=== PATIENT | female | born 1945 | race Caucasian/White ===

== ENCOUNTER 2016-09-19 06:02 | Day surgery (SDC) | payer BC, MEDICARE ==
[~2016-09-19] VITALS: Ht 160 cm; Wt 77.3 kg
[~2016-09-19 06:02] MED LIST: ACET-1651 PO; ACET-2930 PO; ASPI-558 PO; CETI-115 PO; LIDOCAINE 1% (10mg/ml) 2ml SDV INJ ONE; LR 1,000 ML IV SCH; SIMV20TA89 PO; [UNRECOGNIZED DRUG - CODE] PO
[2016-09-19 06:10] VITALS: BP 125/84; PULSE 98; RESP 18; TEMP 97.7; O2SAT 98; Ht 160 cm; Wt 77.3 kg
[2016-09-19] MEDS ORDERED: LIDOCAINE 1% (10mg/ml) 2ml SDV INJ ONE (07:00)
[2016-09-19] MEDS ORDERED: LR 1,000 ML IV SCH (07:00)
[2016-09-19] MEDS ORDERED: GLYCOPYRROLATE 0.4mg/2ml INJECTION ONE (07:56)
--- NOTE | 2016-09-19 08:10 | ANESPREOP ---
Anesthesia Record Date and Time DATE: 09/19/16 TIME: 709 Proposed Surgical Procedure COLONOSCOPY Allergies: Coded Allergies: erythromycin base (Verified Allergy, Intermediate, HIVES,NAUSEA, 09/19/16) Ht/Wt/BMI Height: 5 ' 3.00 " Weight: 77.300 kg BMI: 30.2 kg/m2 Vital Signs Date Time Temp Pulse Resp B/P Pulse Ox O2 Delivery O2 Flow Rate FiO2 09/19/16 06:10 97.7 98 18 125/84 98 Room Air Medications Inpatient Medications Current Medications Medications (Trade) Dose Ordered Sig/Cheo Start Time Stop Time Status Last Admin Dose Admin Lactated Ringer's 1,000 ml @ 50 mls/hr Q20H 09/08/16 07:00 09/18/16 13:25 DC Lactated Ringer's (Lactated Ringers) 1,000 ml @ 50 mls/hr Q20H 09/19/16 07:00 09/19/16 06:40 50 MLS/HR Acetaminophen (Tylenol Extra Strength) 500 Mg Tablet, 500 MG PO PRN, (Reported) Last Taken: on Unknown Date & Time Acetaminophen/Diphenhydramine (Tylenol Pm Ex-Strength Caplet) 1 Each Tablet, 1 TAB PO HS, (Reported) Last Taken: on 09/16/161999 Ascorbic Acid/Multivit-Min (Emergen-C 1,000 mg Packet) 1,000 Mg Effpowdpkt, 1 PKG PO DAILY, (Reported) Last Taken: on 09/17/161999 Aspirin (Aspir 81) 81 Mg Tablet.dr, 81 MG PO DAILY, (Reported) Last Taken: on 09/16/16 Cetirizine HCl (Zyrtec) 10 Mg Tablet, 1 TAB PO DAILY , (Reported) Last Taken: on 09/17/161999 Simvastatin (Simvastatin) 20 Mg Tablet, 20 MG PO DAILY, (Reported) Last Taken: on 09/16/161999 Currently on Beta Aparna: No Medical/Surgical History Anesthesia PMH: Reports: Arthritis (KNEES & HIPS PER H&P), Reflux, Denies: * Angina, *Diabetes, *Dyspnea, *Hypertension, *IN, Anesthesia Reactions (NO AIRWAY ISSUES-N&V), Asthma, CHF, COPD, CVA/Stroke/TIA, Cancer, Clotting Problems , Deep Vein Thrombosis, Glaucoma, Hepatitis, Hiatal Hernia, Malignant Hyperthermia, Pneumonia, Renal Disease, Rheumatic Fever, Seizures, Sleep Apnea, Thyroid Disease, Tuberculosis Smoking Status: Never smoker Use Chewing Tobacco?: No Substance Use Type: does not use Alcohol Intake: none HX of Last Menstrual Period: AGE 52 Past Surgical History Orthopedic Surgeries: No Abdominal Surgeries: No Genitourinary Surgeries: No Cardiac Surgeries: No Endocrine Surgeries: No Reproductive Surgeries: Yes - TUBAL LIGATION Neurological Surgeries: No Ear Surgeries: No Nose Surgeries: No Throat Surgeries: Yes - TONSILS Other Surgeries: Yes - COLONOSCOPYS Anesthesia Adverse Reactions: FOUND none Family Hx of Anesthesia Advers: none Hx of Motion Sickness: No Physical Exam Respiratory: Lungs clear Cardiovascular: FOUND Regular rate, rhythm Airway Assessment Mallampati Score: II TMD: 3 Fingerbreadths Neck Extension: Good Overall Assessment: No Airway Concerns ASA: 2 Plan Anesthesia Plan: TIVA Discussion Discussed risks/options/alternatives of anesthesia and questions answered. Patient consents. Nursing pain assessment noted. Present: Spouse Attestation Statement Prior to the delivery of any anesthetic medication, I examined the patient, developed the plan, obtained the patient's consent and discussed the risk and benefits of the procedure with the patient/guardian. JEWELS BENAVIDEZ CRNA Sep 19, 2016 08:10
[2016-09-19 08:15] VITALS: BP 108/53; PULSE 92; RESP 14; TEMP 98.8; O2SAT 95
[2016-09-19] MEDS ORDERED: PROMETHAZINE 25 MG INJECTION IV PRN (08:15)
[2016-09-19] MEDS ORDERED: ONDANSETRON 4mg/2ml INJECTION IV PRN (08:15)
[2016-09-19] MEDS ORDERED: OXYCODONE I.R. 5 MG TABLET PO PRN (08:15)
[2016-09-19] MEDS ORDERED: ACETAMINOPHEN 500 MG TABLET PO PRN (08:15)
[2016-09-19] MEDS ORDERED: IBUPROFEN 200 MG TABLET PO PRN (08:15)
[2016-09-19] MEDS ORDERED: MORPHINE 10mg/ml vl INJECTION IV PRN (08:15)
--- NOTE | 2016-09-19 08:17 | GSPOSTPROC ---
Immediate Operative Note DATE: 09/19/16 TIME: 08:16 Postop Diagnosis: Hematochezia Surgical Procedure: C-scope Surgeon: Dieter ASA: 2 LIA SANTOS MD Sep 19, 2016 08:17
[2016-09-19 08:30] VITALS: BP 110/59; PULSE 96; RESP 24; O2SAT 96
[2016-09-19 08:45] VITALS: BP 107/58; PULSE 92; RESP 20; O2SAT 96
--- NOTE | 2016-09-19 08:55 | ANESPO ---
Post-Op Note Date 09/19/16 Time: 08:55 Status Pt Participated in Evaluation: Pt participated in person Vital Signs Date Time Temp Pulse Resp B/P Pulse Ox O2 Delivery O2 Flow Rate FiO2 09/19/16 08:15 98.8 92 14 108/53 95 Room Air Respiratory Function: Airway patent Cardiovascular Function: Regular pulse Mental Status: Alert/oriented Pain Level Intensity: 0 Hydration: Taking po fluids Complications during Recovery None apparent Follow-Up Instructions Instructions Per Surgeon JEWELS BENAVIDEZ CRNA Sep 19, 2016 08:55
[2016-09-19 09:00] VITALS: BP 97/52; PULSE 82; RESP 18; O2SAT 98
[2016-09-19 09:16] VITALS: BP 103/54; PULSE 80; RESP 21; O2SAT 98
--- NOTE | 2016-09-19 12:51 | OPNOTEF ---
DATE OF OPERATION 09/19/2016 PREOPERATIVE DIAGNOSES 1. Personal history of adenomatous colon and rectal polyps. 2. Occasional hematochezia. POSTOPERATIVE DIAGNOSES 1. Personal history of adenomatous colon and rectal polyps. 2. Internal and external hemorrhoids. 3. Occasional hematochezia. OPERATION Total colonoscopy SURGEON Ken Garcias MD ANESTHESIA TIVA ASA CLASS 2 FINDINGS There were no colon or rectal tumors. There were no colon or rectal polyps. There were no colonic angiodysplasia lesions. There was no melanosis coli. There was no inflammatory bowel disease. There was no colonic diverticulosis. Findings were normal throughout the colon and rectum. There was no bright red blood or old blood seen anywhere at the time of total colonoscopy today. The patient does have some internal and external hemorrhoids. It was thought at the conclusion of the operation today that any hematochezia experienced by the patient is due to bleeding from internal hemorrhoids. DESCRIPTION OF OPERATION The patient was brought to the endoscopy room. The patient was placed on a cart in the endoscopy room. The patient was placed in left lateral recumbent position on the cart in the endoscopy room. The patient was premedicated with some intravenous sedation medication administered by the nurse mold closer. The Olympus colonoscope was used. The colonoscope was introduced into the rectum. The colonoscope was advanced up through the rectum and colon all the way up to the cecum. The appendiceal orifice was visualized. The ileocecal valve was visualized. The colonoscope was then withdrawn out through the colon and rectum and removed from the patient. Digital rectal examination was performed. Findings throughout procedure were as described above. The patient did continue to receive intravenous sedation medication administered by the nurse mold closer throughout the operation. The patient did tolerate the operation well. RECOMMENDATION Followup colonoscopy again in five years. MTDD
== END 2016-09-19 09:16 | disposition home or self-care (01) ==
LOC: NSC 06:02
PROVIDERS: ATTEND Surgery
DX: K92.1 Melena (principal); K64.8 Other hemorrhoids; K64.4 Residual hemorrhoidal skin tags; Z86.010 Personal history of colon polyps; E78.5 Hyperlipidemia, unspecified; Z79.82 Long term (current) use of aspirin; Z79.899 Other long term (current) drug therapy
CPT/HCPCS: 45378; J2405; J7120